=== PATIENT | male | born 1950 | race Caucasian/White ===

== ENCOUNTER 2019-06-22 12:41 | Emergency (ER) | payer MEDICARE ==
[2019-06-22] MEDS ORDERED: Lidocaine 1% 20 ML MDV ONE (13:04)
--- NOTE | 2019-06-22 13:13 | RAD ---
XR Finger(s) Lt Min 2 View History: Crush injury Comparison: None. Findings: There is a comminuted open fracture tuft distal phalanx small finger. Extensive soft tissue laceration. Impression: Distracted open displaced tuft fracture distal phalanx small finger.
== END 2019-06-22 15:12 | disposition home or self-care (01) ==
LOC: MADERS 12:41
DX: S68.127A Partial traumatic metacarpophalangeal amputation of left little finger, initial encounter (principal); E11.9 Type 2 diabetes mellitus without complications; Z79.4 Long term (current) use of insulin; W20.8XXA Other cause of strike by thrown, projected or falling object, initial encounter
CPT/HCPCS: 12001; J2001